=== PATIENT | female | born 1955 | race Caucasian/White ===

== ENCOUNTER → 2018-07-16 | Outpatient (CLI) | payer BC ==
[2018-07-16 17:57] LABS: Basophils # (A) 0.1 k/uL (0-0.2); Basophils % (A) 1 %; Eosinophils # (A) 0.2 k/uL (0-0.7); Eosinophils % (A) 3 %; HCT 38.5 % (34.0-46.0); HGB 12.9 gm/dL (11.4-16.0); Lymphocytes # (A) 2.4 k/uL (1.0-4.8); Lymphocytes % (A) 34 %; MCH 31.6 pg (25.0-35.0); MCHC 33.4 g/dL (31.0-37.0); MCV 94.5 fL (80.0-100.0); Mean Platelet Volume 6.8; Monocytes # (A) 0.4 k/uL (0-1.0); Monocytes % (A) 5 %; Neutrophils % (A) 56 %; Platelet Count 324 k/uL (150-450); RBC 4.08 m/uL (3.80-5.40); WBC 7.2 k/uL (3.8-10.6)
[2018-07-17 04:01] LABS: Gliadin AB IgA, Unit <0.2 U/mL
== END ==
LOC: LABWHC1 15:49
PROVIDERS: ATTEND Internal Medicine Gastroenterology
DX: R19.7 Diarrhea, unspecified (principal)
CPT/HCPCS: 36415; 83516; 85025

== ENCOUNTER → 2023-10-26 | Outpatient (CLI) | payer MEDICARE ==
--- NOTE | 2023-10-26 14:06 | MM ---
Reason for Exam: Additional evaluation requested from abnormal screening. Last screening mammogram was performed 1 month(s) ago. Patient History: Menarche at age 13. First Full-Term at age 33. Late child-bearing (after 30). Hysterectomy at age 43. Postmenopausal. Risk Values: Nuria 5 year model risk: 2.2%. NCI Lifetime model risk: 6.6%. Prior Study Comparison: 02/26/2021 Bilateral Diagnostic Mammogram, Unknown. 03/02/2021 Bilateral Diagnostic Ultrasound, Unknown. 09/09/2022 Bilateral MG 3D screening mammo w/cad, Unknown. 09/11/2023 Bilateral MG 3D screening mammo w/cad, Unknown. Tissue Density: Right: The breast tissue is heterogeneously dense. This may lower the sensitivity of mammography. Findings: Analyzed By CAD. No persisting abnormality on the posterior central aspect of the cc view. Dense tissues remain superiorly on additional spot compression and true lateral views. Further ultrasound evaluation is recommended. Overall Assessment: Incomplete: need additional imaging evaluation, BI-RAD 0 Management: Diagnostic Breast Ultrasound of the right breast. Electronically signed and approved by: Jarvis Pierson M.D. Radiologist
--- NOTE | 2023-10-26 14:59 | USB ---
Reason for Exam: Additional evaluation requested from prior study. Patient History: Menarche at age 13. First Full-Term at age 33. Late child-bearing (after 30). Hysterectomy at age 43. Postmenopausal. Risk Values: Nuria 5 year model risk: 2.2%. NCI Lifetime model risk: 6.6%. Technique: Method: Targeted. Prior Study Comparison: 02/26/2021 Bilateral Diagnostic Mammogram, Unknown. 09/09/2022 Bilateral MG 3D screening mammo w/cad, Unknown. 09/11/2023 Bilateral MG 3D screening mammo w/cad, Unknown. Findings: The upper section of the breast of the right breast, the axilla of the right breast and the retroareolar of the right breast were scanned. Targeted ultrasound superior half of the right breast 9:00 to 3:00 position including the subareolar region and axilla. There is no solid or cystic lesion. Dense tissue is present throughout. No axillary lymphadenopathy. Overall Assessment: Probably benign, BI-RAD 3 Management: Diagnostic Mammogram of the right breast in 6 months. A clinical breast exam by your physician is recommended on an annual basis and results should be correlated with mammographic findings. This exam should not preclude additional follow-up of suspicious palpable abnormalities. Results were given to the patient verbally at the time of exam. Electronically signed and approved by: Jarvis Pierson M.D. Radiologist
== END | disposition home or self-care (01) ==
LOC: RADMAMWWP 13:26
PROVIDERS: ATTEND Family Medicine
DX: N64.89 Other specified disorders of breast (principal); R92.331 Mammographic heterogeneous density, right breast; Z78.0 Asymptomatic menopausal state
CPT/HCPCS: 77065; 76642; G0279; 77061

== ENCOUNTER → 2024-07-26 | Outpatient (CLI) | payer MEDICARE ==
--- NOTE | 2024-07-26 11:14 | MM ---
Reason for Exam: Follow-up at short interval from prior study. Last screening mammogram was performed 10 month(s) ago. Patient History: Menarche at age 13. First Full-Term at age 33. Late child-bearing (after 30). Hysterectomy at age 43. Postmenopausal. Risk Values: Nuria 5 year model risk: 2.2%. NCI Lifetime model risk: 6.6%. Prior Study Comparison: 09/09/2022 Bilateral MG 3D screening mammo w/cad, Unknown. 09/11/2023 Bilateral MG 3D screening mammo w/cad, Unknown. 10/26/2023 Right MG 3D diag mammo w/cad RT, [facility]. Tissue Density: Right: There are scattered areas of fibroglandular density. Findings: Analyzed By CAD. Stable Area of concern/asymmetry which compresses out on spot compression imaging on prior. No suspicious masses, calcifications or distortions. Overall Assessment: Benign, BI-RAD 2 Management: Screening Mammogram of both breasts in 1 year. Results were given to the patient verbally at the time of exam. Patient should continue monthly self-breast exams. A clinical breast exam by your physician is recommended on an annual basis. This exam should not preclude additional follow-up of suspicious palpable abnormalities. Note on Nuria scores and lifetime risk: 1. A Nuria score greater than 3% is considered moderate risk. If this is the case, consider specialist referral to assess eligibility for a risk reducing agent. 2. If overall lifetime risk for the development of breast cancer is 20% or higher, the patient may qualify for future screening with alternating mammogram and breast MRI. [facility], , 07/26/2024 11:10 AM. Electronically signed and approved by: Nikunj Mckeon DO
== END | disposition home or self-care (01) ==
LOC: RADMAMWWP 10:40
PROVIDERS: ATTEND Family Medicine
CPT/HCPCS: 77061; 77065